=== PATIENT | male | born 1995 | race Two or more races ===

== ENCOUNTER 2017-03-14 20:43 | Emergency (ER) | payer BC ==
[2017-03-14] MEDS ORDERED: ACETAMINOPHEN 500 MG TAB PO ONE (21:16)
[2017-03-14] MEDS ORDERED: IBUPROFEN 600 MG TAB PO ONE ×2 (21:16→21:17)
[2017-03-14] MEDS ORDERED: ACETAMINOPHEN 500 MG TAB ONE (21:17)
[2017-03-14 21:36] LABS: STREP SCREEN RAPID NEGATIVE (NEGATIVE)
--- NOTE | 2017-03-14 21:49 | EDPHY ---
H & P Stated Complaint: CHASE that started 4hours ago with emesis Time Seen by Provider: 03/14/17 21:39 HPI/ROS: HPI CHIEF COMPLAINT: Sore throat, muscle aches, joint pain, headache, nausea, abdominal pain. HISTORY OF PRESENT ILLNESS: This patient 21-year-old male he is otherwise healthy no significant medical history does not take any daily medications and no surgical history presents to the emergency room with multitude of complaints. He states that he was studying today and was on campus of sudden developed sore throat, muscle aches and joint pain. Additionally he developed a headache with nausea. Diffuse crampy abdominal pain no diarrhea. He did not have any vomiting. He states he tried to continues study for 4-6 more hours but could not take the muscle aches and joint pain any further. He denies any shortness of breath. Denies productive cough. Denies chest pain. Did not take anything prior to coming to the emergency room. Main complaint now is muscle aches and joint pain. Past Medical History: Denies medical history Past Surgical History: Denies surgical history Social History: [employer] student, alcohol occasionally, denies illicit drugs or tobacco. Family History: Noncontributory ROS REVIEW OF SYSTEMS: A comprehensive 10 point review of systems is otherwise negative aside from elements mentioned in the history of present illness. Exam Constitutional appears well nontoxic triage nursing summary reviewed, vital signs reviewed, awake/alert. Vital signs reviewed at triage is tachycardic. Afebrile. Eyes normal conjunctivae and sclera, EOMI, PERRLA. HENT neck exam supple, posterior pharynx is erythematous, no significant exudate, uvula midline, TMs are pink bilaterally but no significant bulge or erythema normal inspection, atraumatic, moist mucus membranes, no epistaxis, no meningismus, no raccoon eyes. Respiratory clear to auscultation bilaterally, normal breath sounds, no respiratory distress, no wheezing. Cardiovascular tachycardic, regular rhythm, no murmur, no edema, distal pulses normal. Gastrointestinal soft, non-tender, no rebound, no guarding, normal bowel sounds, no distension, no pulsatile mass. Genitourinary no CVA tenderness. Musculoskeletal no midline vertebral tenderness, full range of motion, no calf swelling, no tenderness of extremities, no meningismus, good pulses, neurovascularly intact. Skin pink, warm, & dry, no rash, skin atraumatic. Neurologic awake, alert and oriented x 3, AAOx3, moves all 4 extremities equally, motor intact, sensory intact, CN II-XII intact, normal cerebellar, normal vision, normal speech. Psychiatric normal mood/affect. Heme/Lymph/Immune no lymphadenopathy. Differential Diagnosis: Includes but is not limited to in a particular order: Strep pharyngitis, Viral syndrome, upper respiratory tract infection, influenza electrolyte disturbance, dehydration Medical Decision Making: Plan for this patient check influenza and strep throat , IV hydration, Zofran for nausea, check basic blood work and re-evaluate. Re-evaluation: 1250: Patient re-evaluated this time resting comfortably no acute distress. Vital signs are much improved. Heart rate is normalized. Blood work has been reviewed negative strep. Negative influenza. Slight white count. He otherwise appears well nontoxic. No meningeal signs. Will place on amoxicillin for possible strep pharyngitis. However distally return precautions given. He understands return emergency room if develops worsening symptoms includes high fever, vomiting sore throat or any questions or concerns. Will place on amoxicillin in case this is strep pharyngitis given the pharyngeal erythema. Rapid strep negative however culture follow-up. Source: Patient - Personal History Current Tetanus/Diphtheria Vaccine: Yes Current Tetanus Diphtheria and Acellular Pertussis (TDAP): Yes - Medical/Surgical History Hx Asthma: No Hx Chronic Respiratory Disease: No Hx Diabetes: No Hx Cardiac Disease: No Hx Renal Disease: No Hx Cirrhosis: No Hx Alcoholism: No Hx HIV/AIDS: No Hx Splenectomy or Spleen Trauma: No Other PMH: N/A - Social History Smoking Status: Current some day smoker Constitutional: Initial Vital Signs Temperature (C) 37.6 C 03/14/17 20:45 Heart Rate 132 H 03/14/17 20:45 Respiratory Rate 20 03/14/17 20:45 Blood Pressure 123/73 H 03/14/17 20:45 O2 Sat (%) 99 03/14/17 20:45 O2 Delivery Mode Room Air Allergies/Adverse Reactions: No Known Allergies Allergy (Unverified 03/14/17 20:49) Home Medications: Medication Instructions Recorded Amoxicillin Trihydrate 500 mg PO TID 7 Days cap 03/15/17 [Amoxicillin] Ibuprofen [Motrin (*)] 800 mg PO Q6-8PRN #10 tab 03/15/17 Medical Decision Making - Data Points Laboratory Results: Laboratory Results 03/14/17 22:05 03/14/17 22:05 03/14/17 03/14/17 03/14/17 Unknown 23:00 22:05 WBC RBC Hgb Hct MCV MCH MCHC RDW Plt Count MPV Neut % (Auto) Lymph % (Auto) [place] % (Auto) Eos % (Auto) Baso % (Auto) Nucleat RBC Rel Count Absolute Neuts (auto) Absolute Lymphs (auto) Absolute Monos (auto) Absolute Eos (auto) Absolute Basos (auto) Absolute Nucleated RBC Immature Gran % Immature Gran # Sodium 141 mEq/L mEq/L (134-144) Potassium 3.5 mEq/L mEq/L (3.5-5.2) Chloride 103 mEq/L mEq/L (97-110) Carbon Dioxide 21 mEq/l L mEq/l (22-31) Anion Gap 17 mEq/L H mEq/L (8-16) BUN 11 mg/dL mg/dL (7-23) Creatinine 0.9 mg/dL mg/dL (0.7-1.3) Estimated GFR > 60 Glucose 116 mg/dL H mg/dL (70-100) Calcium 9.6 mg/dL mg/dL (8.5-10.4) Total Bilirubin 1.9 mg/dL H mg/dL (0.1-1.4) Conjugated Bilirubin 0.2 mg/dL mg/dL (0.0-0.5) Unconjugated Bilirubin 1.7 mg/dL H mg/dL (0.0-1.1) AST 19 IU/L IU/L (17-59) ALT 23 IU/L IU/L (21-72) Alkaline Phosphatase 71 IU/L IU/L (38-126) Total Protein 7.5 g/dL g/dL (6.3-8.2) Albumin 4.6 g/dL g/dL (3.5-5.0) Lipase 110 IU/L IU/L (23-300) Urine Color YELLOW Urine Appearance HAZY Urine pH 5.0 (5.0-7.5) Ur Specific [place] 1.018 (1.002-1.030) Urine Protein NEGATIVE (NEGATIVE) Urine Ketones TRACE H (NEGATIVE) Urine Blood NEGATIVE (NEGATIVE) Urine Nitrate NEGATIVE (NEGATIVE) Urine Bilirubin NEGATIVE (NEGATIVE) Urine Urobilinogen NEGATIVE EU EU (0.2-1.0) Ur Leukocyte Esterase NEGATIVE (NEGATIVE) Urine Glucose NEGATIVE (NEGATIVE) Nasal Influenza A PCR Nasal Influenza B PCR Group A Strep Screen Group A Strep DNA Pending 03/14/17 03/14/17 22:05 21:15 WBC 12.22 10^3/uL H 10^3/uL (3.80-9.50) RBC 5.39 10^6/uL 10^6/uL (4.40-6.38) Hgb 16.2 g/dL g/dL (13.7-17.5) Hct 45.0 % % (40.0-51.0) MCV 83.5 fL fL (81.5-99.8) MCH 30.1 pg pg (27.9-34.1) MCHC 36.0 g/dL g/dL (32.4-36.7) RDW 12.6 % % (11.5-15.2) Plt Count 196 10^3/uL 10^3/uL (150-400) MPV 9.6 fL fL (8.7-11.7) Neut % (Auto) 87.6 % H % (39.3-74.2) Lymph % (Auto) 6.7 % L % (15.0-45.0) [place] % (Auto) 4.5 % % (4.5-13.0) Eos % (Auto) 0.2 % L % (0.6-7.6) Baso % (Auto) 0.3 % % (0.3-1.7) Nucleat RBC Rel Count 0.0 % % (0.0-0.2) Absolute Neuts (auto) 10.70 10^3/uL H 10^3/uL (1.70-6.50) Absolute Lymphs (auto) 0.82 10^3/uL L 10^3/uL (1.00-3.00) Absolute Monos (auto) 0.55 10^3/uL 10^3/uL (0.30-0.80) Absolute Eos (auto) 0.03 10^3/uL 10^3/uL (0.03-0.40) Absolute Basos (auto) 0.04 10^3/uL 10^3/uL (0.02-0.10) Absolute Nucleated RBC 0.00 10^3/uL 10^3/uL (0-0.01) Immature Gran % 0.7 % % (0.0-1.1) Immature Gran # 0.08 10^3/uL 10^3/uL (0.00-0.10) Sodium Potassium Chloride Carbon Dioxide Anion Gap BUN Creatinine Estimated GFR Glucose Calcium Total Bilirubin Conjugated Bilirubin Unconjugated Bilirubin AST ALT Alkaline Phosphatase Total Protein Albumin Lipase Urine Color Urine Appearance Urine pH Ur Specific [place] Urine Protein Urine Ketones Urine Blood Urine Nitrate Urine Bilirubin Urine Urobilinogen Ur Leukocyte Esterase Urine Glucose Nasal Influenza A PCR NEGATIVE FOR FLU A (NEGATIVE) Nasal Influenza B PCR NEGATIVE FOR FLU B (NEGATIVE) Group A Strep Screen NEGATIVE (NEGATIVE) Group A Strep DNA Medications Given: Discontinued Medications Acetaminophen (Tylenol) 1,000 mg PO EDNOW ONE Stop: 03/14/17 21:17 Last Admin: 03/14/17 21:18 Dose: 1,000 mg Sodium Chloride (Ns) 1,000 mls @ 0 mls/hr IV EDNOW ONE; Wide Open PRN Reason: Protocol Stop: 03/14/17 21:57 Last Admin: 03/14/17 22:09 Dose: 1,000 mls Sodium Chloride (Ns) 1,000 mls @ 0 mls/hr IV EDNOW ONE; Wide Open PRN Reason: Protocol Stop: 03/14/17 21:57 Last Admin: 03/14/17 22:08 Dose: 1,000 mls Ibuprofen (Motrin) 600 mg PO EDNOW ONE Stop: 03/14/17 21:17 Last Admin: 03/14/17 21:18 Dose: 600 mg Ondansetron HCl (Zofran) 4 mg IVP EDNOW ONE Stop: 03/14/17 21:57 Last Admin: 03/15/17 00:49 Dose: Not Given Departure - Departure Disposition: Home, Routine, Self-Care Clinical Impression: Viral syndrome Pharyngitis Qualifiers: Pharyngitis/tonsillitis etiology: streptococcus Qualified Code(s): J02.0 - Streptococcal pharyngitis Condition: Fair Instructions: Viral Syndrome (ED), Pharyngitis (ED) Additional Instructions: 1. Make sure to drink lots of fluids stay well-hydrated. 2. Alternate Tylenol Motrin every 4-6 hours for pain control and fever reduction. 3. Antibiotic as prescribed. 4. Return to the emergency room if there is worsening symptoms includes high fever, vomiting you do not feel well. Referrals: NONE *PRIMARY CARE P,. [Primary Care Provider] - As per Instructions Stand Alone Forms: School Excuse Prescriptions: Amoxicillin Trihydrate [Amoxicillin] 500 mg PO TID 7 Days cap Ibuprofen [Motrin (*)] 800 mg PO Q6-8PRN #10 tab
[2017-03-14] MEDS ORDERED: NS 1,000 ML IV ONE ×2 (21:56)
[2017-03-14] MEDS ORDERED: ONDANSETRON 4 MG/2 ML VIAL IVP ONE (21:56)
[2017-03-14 22:07] VITALS: TEMP 99
[2017-03-14 22:14] LABS: % IMMATURE GRANULYOCYTES 0.7 % (0.0-1.1); ABSOLUTE IMMATURE GRANULOCYTES 0.08 10^3/uL (0.00-0.10); ADD DIFF? NO; ADD MORPH? NO; ADD SCAN? NO; ATYPICAL LYMPHOCYTE FLAG 0 (0-99); FRAGMENT RBC FLAG 0 (0-99); HEMOGLOBIN 16.2 g/dL (13.7-17.5); LEFT SHIFT FLG 0 (0-99); LIPEMIA HEMOLYSIS FLAG 90 (0-99); MEAN CELL HEMOGLOBIN 30.1 pg (27.9-34.1); MEAN CELL VOLUME 83.5 fL (81.5-99.8); MEAN PLATELET VOLUME 9.6 fL (8.7-11.7); PLATELET CLUMPS FLAG 0 (0-99); PLATELET COUNT 196 10^3/uL (150-400); RED BLOOD CELL COUNT 5.39 10^6/uL (4.40-6.38); RED CELL DISTRIBUTION WIDTH 12.6 % (11.5-15.2)
[2017-03-14 22:42] LABS: ALANINE AMINOTRANSFERASE 23 IU/L (21-72); ALBUMIN 4.6 g/dL (3.5-5.0); ALKALINE PHOSPHATASE 71 IU/L (38-126); ANION GAP 17 mEq/L (8-16); ASPARTATE AMINOTRANSFERASE 19 IU/L (17-59); BILIRUBIN,TOTAL 1.9 mg/dL (0.1-1.4); BILIRUBIN-CONJUGATED 0.2 mg/dL (0.0-0.5); BILIRUBIN-UNCONJUGATED 1.7 mg/dL (0.0-1.1); CALCIUM 9.6 mg/dL (8.5-10.4); CARBON DIOXIDE 21 mEq/l (22-31); CHLORIDE 103 mEq/L (97-110); CREATININE 0.9 mg/dL (0.7-1.3); GLOMERULAR FILTRATION RATE > 60; GLUCOSE 116 mg/dL (70-100); POTASSIUM 3.5 mEq/L (3.5-5.2); SODIUM 141 mEq/L (134-144); TOTAL PROTEIN 7.5 g/dL (6.3-8.2)
[2017-03-14 23:05] LABS: COLOR YELLOW; LEUKOCYTE ESTERASE,URINE NEGATIVE (NEGATIVE); NITRITE,URINE NEGATIVE (NEGATIVE)
[2017-03-14 23:46] VITALS: RESP 16; O2SAT 96
[2017-03-15] MEDS ORDERED: DEXAMETHASONE 4 MG TAB PO ONE (00:57)
[2017-03-15 01:09] VITALS: BP 116/72; PULSE 88
== END 2017-03-15 01:09 | disposition home or self-care (01) ==
DX: J02.0 Streptococcal pharyngitis (principal); B34.9 Viral infection, unspecified; F17.200 Nicotine dependence, unspecified, uncomplicated; E86.9 Volume depletion, unspecified